=== PATIENT | male | born 1955 | race Caucasian/White ===

== ENCOUNTER → 2016-08-01 | Outpatient (CLI) | payer MEDICARE, MEDICAID ==
[~2016-08-01] MED LIST: ALBU18HF2 INH; CETI-269 PO; FERR-67 PO; GABA-338 PO; GEMF600T61 PO; MAGN500T3 PO; METO-277 PO; MULT-1243 PO; NAPR-1119 PO; OMEG-34 PO; OMEP20CA10 PO; OXYC1TAB66 PO; POTA20TA10 PO; RISP1TAB4 PO; SULF1TAB3 PO; TAMS0.4C47 PO; TRAZ-173 PO; TRIA1CAP6 PO; VENL150C2 PO
[2016-08-01 14:22] LABS: MAGNESIUM 1.9 MG/DL (1.6-2.3)
[2016-08-01 22:51] LABS: ANION GAP 11 MEQ/L (5-15); BUN/CREATININE RATIO 14 RATIO (6-26); CALCIUM 10.1 MG/DL (8.4-10.2); CHLORIDE 107 MEQ/L (98-107); CO2 - CARBON DIOXIDE 26 MEQ/L (22-30); CREATININE 0.9 MG/DL (0.8-1.5); GLOMERULAR FILTRATION RATE 86; POTASSIUM 4.4 MEQ/L (3.6-5); SODIUM 144 MEQ/L (134-144)
[2016-08-01 23:39] LABS: GLUCOSE 87 MG/DL (75-110)
== END ==
LOC: LAB 13:53
PROVIDERS: ATTEND Family Medicine
DX: E87.6 Hypokalemia (principal); E83.40 Disorders of magnesium metabolism, unspecified
CPT/HCPCS: 36415; 80048; 83735

== ENCOUNTER 2016-09-01 22:05 | Emergency (ER) | payer MEDICARE, MEDICAID ==
[~2016-09-01] VITALS: Ht 175.3 cm; Wt 90.6 kg
[2016-09-01 22:05] VITALS: Ht 175.3 cm; Wt 90.6 kg
--- OUTSIDE RECORDS SUMMARY | 2016-09-01 22:07 | XMS REPORT | Continuity of Care Document ---
Author Author [facility] Organization [facility] Address Unknown Phone Unavailable Care Team Providers Care Foot Tender Name Role Phone ISABEL ORLANDO MD Primary Care Physician [phone] Insurance Providers Payer Name Policy Number Subscriber Name Relationship Medicare [id number] Tim Sandoval 18 Self Medicaid [id number] Tim Sandoval 18 Self Advance Directives Directive Response Recorded Date/Time Ordered Resuscitation Status Full Code, unverified 03/21/14 4:12pm Resuscitation Documents on File No 03/21/14 3:58pm Problems Medical Problems Problem Onset Date Status Back pain Unknown Active Back pain Unknown Active Strain of left knee Unknown Active Strain of left knee Unknown Active Medications Medication Dose Route Sig Days/Qty Instructions Order Date Discontinued Date Status Hydrocodone Bit/Acetaminophen 1 - 2 Tab PO NEEDED 04/02/08 Discontinued Methocarbamol 750 Mg PO NEEDED 08/05/08 10/24/08 Discontinued Olmesartan Medoxomil 1 Tab PO DAILY 02/05/10 09/14/12 Discontinued Gemfibrozil 1 Tab PO DAILY 02/05/10 Active Furosemide 06/06/08 07/01/08 Discontinued Paroxetine Hcl 1 Tab PO DAILY 08/05/08 02/25/09 Discontinued Omeprazole 1 Tab PO DAILY 02/05/10 Active Hydrocodone Bit/Acetaminophen 1 Udtab PO THREE TIMES A DAY 08/05/08 04/27/09 Discontinued Varenicline Tartrate 10/24/08 02/25/09 Discontinued Hydrocodone Bit/Acetaminophen 1 Tab PO NEEDED 02/05/10 09/14/12 Discontinued Valsartan/Hydrochlorothiazide 1 Tab PO DAILY 02/05/10 09/14/12 Discontinued Furosemide 40 Mg PO DAILY 10/07/09 10/08/09 Discontinued Paroxetine Hcl 60 Mg PO DAILY 02/05/10 09/14/12 Discontinued Pravastatin Sodium 40 Mg PO BEDTIME 02/05/10 09/17/12 Discontinued Metoprolol Succinate 25 Mg PO TWICE A DAY 02/05/10 Active Hydrochlorothiazide 25 Mg PO DAILY 09/14/12 Active Loratadine 10 Mg PO BEDTIME 09/14/12 09/17/12 Discontinued Multivitamins 1 Tab PO DAILY 09/14/12 09/17/12 Discontinued Paroxetine Mesylate 10 Mg PO DAILY 0.5 Qty 09/14/12 09/17/12 Discontinued Cyanocobalamin 1,000 Mcg PO DAILY 09/14/12 09/17/12 Discontinued Venlafaxine Hcl 75 Mg PO DAILY 09/17/12 Active Hydrocodone/Acetaminophen 1 Tab PO Every 6 Hours PRN PAIN 30 Qty Active Potassium Chloride 20 Meq PO TWICE DAILY WITH MEALS 60 Qty Take 1 tablet, by mouth, two times a day with meals. 03/23/14 Active Magnesium Oxide 1 Tab PO TWICE A DAY 60 Qty 03/23/14 Active Social History Social History Problem Response Recorded Date/Time Smoking Status Current every day smoker 09/09/2013 12:52pm When did patient START smoking? 15 03/21/2014 4:01pm Hx Substance Use Y USED ILLICIT DRUGS ABOUT SIX MONTHS TO A YEAR AGO 2013 12:22pm Hx Alcohol Use Y NO ALCOHOL FOR THE PAST 5 MONTHS 02/27/2014 12:22pm Has the pt used tobacco in the last 12 months Yes 03/21/2014 4:01pm Query Response Start Date Stop Date Smoking Status Current every day smoker Hospital Discharge Instructions Instructions: Care Instructions: Reason for Hospitalization: HYPOKALEMIA, HYPOMAGNESIA, GAIT INSTABILITY, ALCOHOLISM, SEIZURES I was in the hospital because (patient own words): I drank too much wiskey and i didn't eat Discharge Activity: ACTIVITY TOLERATED Follow Up Appointments: FOLLOW UP WITH DR. ORLANDO EARLY THIS WEEK, CALL TO MAKE APPOINTMENT. Condition at time of discharge: Good Good Condition at time of discharge: Good Plan of Care Discharge Date 03/23/14 7:25pm Disposition 01 DISCHARGED HOME, SELF-CARE Instructions/Education Provided DI for Alcohol Abuse and Alcoholism DI for Hypokalemia Prescriptions See Medications Section Functional Status Query Response Date Recorded Physical Hygiene Self March 23, 2014 7:03pm Disabilities None March 23, 2014 7:03pm Devices Used Dentures Glasses March 23, 2014 7:03pm Dressing Self March 23, 2014 7:03pm Ambulation Self March 23, 2014 7:03pm Diet Self March 23, 2014 7:03pm Mental Status Alert Oriented March 23, 2014 7:03pm Disabilities None March 23, 2014 7:03pm Devices Used Dentures Glasses March 23, 2014 7:03pm Physical Hygiene Self March 23, 2014 7:03pm Dressing Self March 23, 2014 7:03pm Ambulation Self March 23, 2014 7:03pm Diet Self March 23, 2014 7:03pm Allergies, Adverse Reactions, Alerts Allergen Type Severity Reaction Status Last Updated No Known Drug Allergies Allergy Unknown Active 03/21/14 Immunizations Name Given Type Hx Influenza Vaccination No Historical Hx Pneumococcal Vaccination No Historical Hx Tetanus, Diptheria, Pertussis Y 04-27-09 Historical Hx Influenza Vaccination No Historical Hx Tetanus, Diptheria, Pertussis Y 04-27-09 Historical Vital Signs Acute Vital Signs Vital Response Date/Time Temperature (Fahrenheit) 98.2 deg F (96.8 - 99.1) Temperature (Calculated Celsius) 36.29751 degrees C (36.0 - 37.3) Temperature Source Oral Pulse Rate (adult) 62 bpm (60 - 100) Respiratory Rate 16 breaths/min (10 - 20) O2 Sat by Pulse Oximetry 100 % (90 - 100) Oxygen Delivery Method Room Air Blood Pressure 155/98 mm Hg Blood Pressure Source Automatic Cuff Height 5 ft 8 in Weight 194 lb Body Mass Index 29.0 kg/m^2 Results Test Source Date Result Interp. Ref. Range Comments Acetaminophen Level February 05, 2010 12:12pm < 10 UG/ML L 10-30 Alanine Aminotransferase (ALT/SGPT) March 23, 2014 4:31am 59 U/L N 21 -72 Albumin March 23, 2014 4:31am 2.7 G/DL L 3.5-5.0 Albumin/Globulin Ratio March 23, 2014 4:31am 1.1 RATIO N 1.1-2.2 Alcohol, Quantitative March 21, 2014 1:36pm <10 MG/DL - CALL BUN& CREA TO RADIOLOGY Alkaline Phosphatase March 23, 2014 4:31am 89 U/L N 38-126 Alpha Fetoprotein May 16, 2008 8:50am Sent out - Ammonia February 05, 2010 12:12pm 24 UMOL/L N 9-33 Anion Gap March 23, 2014 6:15pm 6 MEQ/L N 5-15 Aspartate Amino Transf (AST/SGOT) March 23, 2014 4:31am 58 U/L DN 17- 59 B-Type Natriuretic Peptide June 13, 2009 1:30pm 41 PG/ML N 15-100 BUN/Creatinine Ratio March 23, 2014 6:15pm 6 RATIO N 6-26 Band Neutrophils # March 21, 2014 1:36pm 0.3 T/MM3 - CALL BUN& CREA TO RADIOLOGY Band Neutrophils % March 21, 2014 1:36pm 5.0 % N 0-6 CALL BUN&CREA TO RADIOLOGY Basophils # (Auto) March 23, 2014 4:31am 0.1 T/MM3 N 0-0.2 Basophils # (Manual) October 29, 2009 6:05am 0.0 T/MM3 N 0-0.2 COMMENT TO SCU AT 0600 Basophils % (Manual) October 29, 2009 6:05am 0.0 % N 0-2 COMMENT TO SCU AT 0600 Basophils (%) (Auto) March 23, 2014 4:31am 1.0 % N 0-2 Blood Urea Nitrogen March 23, 2014 6:15pm 5.0 MG/DL L 9-20 Calcium Level March 23, 2014 6:15pm 8.5 MG/DL N 8.4-10.2 Calculated Osmolality March 23, 2014 6:15pm 263 MOSM/KG N 261-280 Carbon Dioxide Level March 23, 2014 6:15pm 26 MEQ/L N 22-30 Chemistry Specimen Hemolysis March 23, 2014 6:15pm < 15 0-25 0-25 : No Hemolysis.26-70: Slight Hemolysis - can falsely elevate K and Urine Protein. 71-285: Moderate Hemolysis - can falsely elevate K, Troponin I, CA 19-9, PTH, CSF GLucose, and Urine Protein, and can falsely decrease Phenytoin. 286-999: Gross Hemolysis - can falsely elevate K, Troponin I, CA 19-9, PTH, CSF Glucose, and Urine Protine, and can falsely decrease Phenytoin. Recommend specimen recollection. Chloride Level March 23, 2014 6:15pm 106 MEQ/L N 98-107 Cholesterol Level May 16, 2008 8:50am 370 MG/DL H 132-199 Cholesterol/HDL Ratio May 16, 2008 8:50am 4.0 RATIO N 0-4.9 Conjugated Bilirubin February 05, 2010 12:12pm 0.00 MG/DL N 0.00-0.30 Creatinine March 23, 2014 6:15pm 0.8 MG/DL N 0.8-1.5 EKG February 25, 2009 6:43pm Complete - Eosinophils # (Auto) March 23, 2014 4:31am 0.1 T/MM3 N 0-0.5 Eosinophils # (Manual) March 21, 2014 1:36pm 0.1 T/MM3 N 0-0.5 CALL BUN&CREA TO RADIOLOGY Eosinophils % (Manual) March 21, 2014 1:36pm 1.0 % N 0-4 CALL BUN& CREA TO RADIOLOGY Eosinophils (%) (Auto) March 23, 2014 4:31am 1.7 % N 0-4 Erythrocyte Sedimentation Rate May 16, 2008 8:50am 3 MM/HR - Globulin March 23, 2014 4:31am 2.5 G/DL N 2.4-3.6 Glomerular Filtration Rate Calc March 23, 2014 6:15pm 99 - Glucose Level March 23, 2014 6:15pm 92 MG/DL N 75-110 HDL Cholesterol Direct May 16, 2008 8:50am 88 MG/DL H 40-60 HIV (1&2) Antibody Rapid May 16, 2008 8:50am Negative - Hematocrit March 23, 2014 4:31am 33.1 % L 41-53 Hemoglobin March 23, 2014 4:31am 11.0 GM/DL L 13.5-17.5 Hepatitis C Antibody May 16, 2008 9:20am Positive - Hepatitis C RNA (PCR) Method May 16, 2008 9:20am Sent out - Icterus Index March 23, 2014 6:15pm < 2 0-7 Immature Granulocyte # (Auto) March 23, 2014 4:31am 0.06 T/MM3 H 0.00 -0.03 Immature Granulocyte % (Auto) March 23, 2014 4:31am 1.1 % H 0.0-0.5 Influenza Type A Antigen June 13, 2009 2:10pm Negative - Influenza Type B Antigen June 13, 2009 2:10pm Negative - LDL Cholesterol, Calculated May 16, 2008 8:50am 232.8 H 66-159 Lab Scanned Report March 21, 2014 9:03pm LAB TEST FORM REQUEST - Lipase June 13, 2009 1:30pm 435 U/L H 23-300 Lymphocytes # (Auto) March 23, 2014 4:31am 1.9 T/MM3 N 1-4.8 Lymphocytes # (Manual) March 21, 2014 1:36pm 2.0 T/MM3 N 1-4.8 CALL BUN&CREA TO RADIOLOGY Lymphocytes % (Manual) March 21, 2014 1:36pm 30.0 % N 23-45 CALL BUN &CREA TO RADIOLOGY Lymphocytes (%) (Auto) March 23, 2014 4:31am 35.4 % N 23-45 Magnesium Level March 23, 2014 6:15pm 0.9 MG/DL DL 1.6-2.3 Mean Corpuscular Hemoglobin March 23, 2014 4:31am 33.3 UUG N 26-34 Mean Corpuscular Hemoglobin Concent March 23, 2014 4:31am 33.2 GM/DL N 31-37 Mean Corpuscular Volume March 23, 2014 4:31am 100.3 UM3 H 80-100 Mean Platelet Volume March 23, 2014 4:31am 10.4 UM3 N 9.4-12.4 Metamyelocytes # March 21, 2014 1:36pm 0.1 T/MM3 - CALL BUN&CREA TO RADIOLOGY Metamyelocytes % March 21, 2014 1:36pm 2.0 % H 0-0 CALL BUN&CREA TO RADIOLOGY Monocytes # (Auto) March 23, 2014 4:31am 1.0 T/MM3 H 0-0.8 Monocytes # (Manual) March 21, 2014 1:36pm 0.4 T/MM3 N 0-0.8 CALL BUN&CREA TO RADIOLOGY Monocytes % (Manual) March 21, 2014 1:36pm 6.0 % N 0-9.0 CALL BUN& CREA TO RADIOLOGY Monocytes (%) (Auto) March 23, 2014 4:31am 18.7 % H 0-9.0 Neutrophils # (Auto) March 23, 2014 4:31am 2.2 T/MM3 N 1.8-7.7 Neutrophils # (Manual) March 21, 2014 1:36pm 3.7 T/MM3 N 1.8-7.7 CALL BUN&CREA TO RADIOLOGY Neutrophils % (Manual) March 21, 2014 1:36pm 55.0 % N 33-66 CALL BUN &CREA TO RADIOLOGY Neutrophils (%) (Auto) March 23, 2014 4:31am 42.1 % N 33-66 Phosphorus Level February 05, 2010 12:12pm 1.6 MG/DL L 2.5-4.5 Platelet Count March 23, 2014 4:31am 212 T/MM3 N 130-400 Potassium Level March 23, 2014 6:15pm 4.3 MEQ/L N 3.6-5 Prostate Specific Antigen May 16, 2008 8:50am 2.56 NG/ML N 0-4.0 RDW Standard Deviation March 23, 2014 4:31am 45.0 FL N 36.9-50.2 Reactive Lymphocytes # March 21, 2014 1:36pm 0.1 T/MM3 H 0-0 CALL BUN&CREA TO RADIOLOGY Reactive Lymphocytes % March 21, 2014 1:36pm 1.0 % H 0-0 CALL BUN& CREA TO RADIOLOGY Red Blood Count March 23, 2014 4:31am 3.30 M/MM3 L 4.50-5.90 Salicylates Level February 05, 2010 12:12pm < 1.0 MG/DL L 2-20 Sodium Level March 23, 2014 6:15pm 138 MEQ/L N 134-144 Tests Not Done February 25, 2009 6:43pm Not done - Has specimen been collected/obtained? Y Thyroid Stimulating Hormone (TSH) May 16, 2008 8:50am 3.61 MIU/ML N 0.47-4.68 Total Bilirubin March 23, 2014 4:31am 0.30 MG/DL N 0.20-1.30 Total Protein March 23, 2014 4:31am 5.2 G/DL L 6.3-8.2 Triglycerides Level May 16, 2008 8:50am 246 MG/DL H 40-160 Troponin I March 21, 2014 1:36pm < 0.012 ng/ml 0-0.12 CALL BUN& CREA TO RADIOLOGY Turbidity March 23, 2014 6:15pm < 20 0-20 Unconjugated Bilirubin February 05, 2010 12:12pm 0.67 MG/DL N 0.00-1.10 Urine Acetaminophen Screen February 05, 2010 1:15pm Positive NG/ML - Urine Amphetamines Screen February 05, 2010 1:15pm Negative NG/ML - Urine Bacteria February 05, 2010 1:15pm Trace H - Has specimen been collected/obtained? Y Urine Barbiturates Screen February 05, 2010 1:15pm Negative NG/ML - Urine Benzodiazepines Screen February 05, 2010 1:15pm Negative NG/ML - Urine Bilirubin February 05, 2010 1:15pm Negative - Has specimen been collected/obtained? Y Urine Blood February 05, 2010 1:15pm Trace H - Has specimen been collected/obtained? Y Urine Cannabinoids Screen February 05, 2010 1:15pm Positive NG/ML - Urine Cocaine Screen February 05, 2010 1:15pm Negative NG/ML - Urine Collection Type February 05, 2010 1:15pm Voided - Has specimen been collected/obtained? Y Urine Color February 05, 2010 1:15pm Yellow - Has specimen been collected/obtained? Y Urine Drug Screen Confirmation February 05, 2010 1:30pm Sent out - Urine Glucose (UA) February 05, 2010 1:15pm Negative - Has specimen been collected/obtained? Y Urine Ketones February 05, 2010 1:15pm 2+ H - Has specimen been collected/obtained? Y Urine Leukocyte Esterase February 05, 2010 1:15pm 1+ H - Has specimen been collected/obtained? Y Urine Methadone Screen February 05, 2010 1:15pm Negative NG/ML - Urine Methamphetamines Screen February 05, 2010 1:15pm Positive NG/ML - Urine Mucus February 05, 2010 1:15pm Present - Has specimen been collected/obtained? Y Urine Nitrite February 05, 2010 1:15pm Negative - Has specimen been collected/obtained? Y Urine Opiates Screen February 05, 2010 1:15pm Positive NG/ML - Urine Phencyclidine Screen February 05, 2010 1:15pm Negative NG/ML - Urine Protein February 05, 2010 1:15pm Trace H - Has specimen been collected/obtained? Y Urine RBC February 05, 2010 1:15pm 1-3 /HPF - Has specimen been collected/obtained? Y Urine Random Potassium March 22, 2014 8:40pm 5.3 MEQ/L - Has specimen been collected/obtained? Y Urine Specific [place] February 05, 2010 1:15pm 1.010 L - Has specimen been collected/obtained? Y Urine Tricyclic Antidepressants February 05, 2010 1:15pm Negative NG/ML - Urine Turbidity February 05, 2010 1:15pm Clear - Has specimen been collected/obtained? Y Urine Urobilinogen February 05, 2010 1:15pm 1 EU/DL - Has specimen been collected/obtained? Y Urine WBC February 05, 2010 1:15pm 1-3 /HPF - Has specimen been collected/obtained? Y Urine pH February 05, 2010 1:15pm 6.0 - Has specimen been collected/ obtained? Y VLDL Cholesterol May 16, 2008 8:50am 49.2 MG/DL H 0-28 White Blood Count March 23, 2014 4:31am 5.2 T/MM3 N 4.5-11.0 Name: TMI SANDOVAL Unit #: [id number] : 1955 Sex: M Loc / Svc: [facility] [place] DOS: Signed Report #: [id number] DIAGNOSTIC IMAGING REPORT TYPE OF EXAM: MRI BRAIN W/WO CONTRAST Dictated By: ORGER OWUSU MD INDICATION: HYPOKALEMIA. HYPO MAG., GAIT INSTABILITY, ALCOHOLISM, SEIZURE ^MRI HEAD COMPARISON: Head CT 10/24/2012 MRI BRAIN W/WO CONTRAST: The brain has evidence of minor chronic small vessel ischemic changes. No significant atrophy. No evidence of midline shift. Normal ventricle size. No findings to suggest tumor, infarct, or hemorrhage. Normal brain diffusion images. Normal-appearing corpus callosum and pituitary. Evidence of a minor effusion in the left mastoids. Evidence of severe chronic right maxillary sinusitis. IMPRESSION: No acute abnormalities in the brain. Evidence of a small left mastoid effusion. Chronic sinusitis. . Procedures No known history of procedures. Encounters Encounter Location Date/Time Discharged Inpatient [facility] 03/22/14 11:50am Registered Clinic [facility] 03/21/14 12:59pm Departed Emergency Room [facility] 02/27/14 12:15pm
--- OUTSIDE RECORDS SUMMARY | 2016-09-01 22:07 | XMS REPORT | Continuity of Care Document ---
Author Author [facility] Organization [facility] Address Unknown Phone Unavailable Support Name Relationship Address Phone ISABEL ORLANDO MD Caregiver [address] [place], [place] [id number] RAMESH SANFORD Next Of Kin [address] [place], [place] [address] Insurance Providers Payer Name Policy Number Subscriber Name Relationship Medicare [id number] Tim Sandoval 18 Self Medicaid [id number] Tim Sandoval 18 Self Advance Directives Directive Response Recorded Date/Time Resuscitation Documents on File No 03/24/14 1:32pm Problems Medical Problems Problem Onset Date Status [...] Status Current every day smoker 09/09/2013 12:52pm Hx Substance Use Y USED ILLICIT DRUGS ABOUT SIX MONTHS TO A YEAR AGO 2013 12:22pm Hx Alcohol Use Y NO ALCOHOL FOR THE PAST 5 MONTHS 02/27/2014 12:22pm Has the pt used tobacco in the last 12 months Yes 03/24/2014 1:29pm Query Response Start Date Stop Date Smoking [...] APPOINTMENT. Condition at time of discharge: Good Dr. Reeder office phone number: [phone]. Patient Instructions: n/a Wound/Incision Care: n/a Durable Medical Equipment: n/a Notify Physician If: Worsening fatigue, shortness of breath General Information: n/a Condition at time of discharge: Good Plan of Care Discharge Date 03/23/14 7:25pm Disposition 01 DISCHARGED HOME, SELF-CARE Instructions/Education Provided DI for Alcohol Abuse and Alcoholism DI for Hypokalemia Prescriptions See Medications Section Functional Status Query Response Date Recorded Physical Hygiene Self March 23, 2014 7:03pm Physical Hygiene Self March 23, 2014 7:03pm Allergies, Adverse [...] Vital Signs Vital Response Date/Time Temperature (Fahrenheit) 98.6 deg F (96.8 - 99.1) Temperature (Calculated Celsius) 37.17231 degrees C (36.0 - 37.3) Temperature Source Temporal Pulse Rate (adult) 68 bpm (60 - 100) Respiratory Rate 16 breaths/min (10 - 20) O2 Sat by Pulse Oximetry 97 % (90 - 100) Oxygen Delivery Method Room Air Blood Pressure 148/76 mm Hg Blood Pressure Source Automatic Cuff Height 5 ft 9 in Weight 180 lb Body Mass Index 26.0 kg/m^2 Results Test Source Date Result Interp. [...] 24 UMOL/L N 9-33 Anion Gap March 25, 2014 10:49am 9 MEQ/L N 5-15 Aspartate Amino Transf (AST/SGOT) March 23, 2014 4:31am 58 U/L DN 17- 59 B-Type Natriuretic Peptide June 13, 2009 1:30pm 41 PG/ML N 15-100 BUN/Creatinine Ratio March 25, 2014 10:49am 9 RATIO N 6-26 Band Neutrophils # March [...] % N 0-2 Blood Urea Nitrogen March 25, 2014 10:49am 10.0 MG/DL DN 9-20 Calcium Level March 25, 2014 10:49am 9.6 MG/DL DN 8.4-10.2 Calculated Osmolality March 25, 2014 10:49am 266 MOSM/KG N 261-280 Carbon Dioxide Level March 25, 2014 10:49am 27 MEQ/L N 22-30 Chloride Level March 25, 2014 10:49am 103 MEQ/L N 98-107 Cholesterol Level May 16, 2008 8:50am 370 MG/DL H 132-199 Cholesterol/HDL Ratio May 16, 2008 8:50am 4.0 RATIO N 0-4.9 Conjugated Bilirubin February 05, 2010 12:12pm 0.00 MG/DL N 0.00-0.30 Creatinine March 25, 2014 10:49am 1.1 MG/DL DN 0.8-1.5 Eosinophils # (Auto) March 23, 2014 4:31am [...] 23, 2014 4:31am 2.5 G/DL N 2.4-3.6 Glucose Level March 25, 2014 10:49am 87 MG/DL N 75-110 Hematocrit March 23, 2014 4:31am 33.1 % L 41-53 Hemoglobin March 23, 2014 4:31am 11.0 GM/DL L 13.5-17.5 Hepatitis C Antibody May 16, 2008 9:20am Positive - Influenza Type A Antigen June 13, 2009 2:10pm Negative - Influenza Type B Antigen June 13, 2009 2:10pm Negative - LDL Cholesterol, Calculated May 16, 2008 8:50am 232.8 H 66-159 Lipase June 13, 2009 1:30pm 435 U/L [...] 35.4 % N 23-45 Magnesium Level March 25, 2014 10:49am 1.6 MG/DL DN 1.6-2.3 Mean Corpuscular Hemoglobin March 23, 2014 [...] 212 T/MM3 N 130-400 Potassium Level March 25, 2014 10:49am 4.2 MEQ/L N 3.6-5 Prostate Specific Antigen May 16, 2008 8:50am 2.56 NG/ML N 0-4.0 RDW Standard Deviation March 23, 2014 4:31am 45.0 FL N 36.9-50.2 Red Blood Count March 23, 2014 4:31am 3.30 M/MM3 L 4.50-5.90 Salicylates Level February 05, 2010 12:12pm < 1.0 MG/DL L 2-20 Sodium Level March 25, 2014 10:49am 139 MEQ/L N 134-144 Tests Not Done February [...] ng/ml 0-0.12 CALL BUN& CREA TO RADIOLOGY Unconjugated Bilirubin February 05, 2010 12:12pm 0.67 MG/DL N 0.00-1.10 Urine Amphetamines Screen February 05, 2010 1:15pm [...] - Has specimen been collected/obtained? Y Urine Cocaine Screen February 05, 2010 1:15pm [...] - Has specimen been collected/obtained? Y Urine Methamphetamines Screen February 05, 2010 1:15pm [...] Has specimen been collected/obtained? Y Urine Specific [place] February 05, 2010 1:15pm 1.010 L - [...] 23, 2014 4:31am 5.2 T/MM3 N 4.5-11.0 Chemistry Specimen Hemolysis March 25, 2014 10:49am < 15 0-25 0-25 : No Hemolysis.26-70: [...] can falsely decrease Phenytoin. Recommend specimen recollection. Lab Scanned Report March 25, 2014 5:21pm LAB TEST FORM REQUEST [id number] - EKG February 25, 2009 6:43pm Complete - Hepatitis C RNA (PCR) Method May 16, 2008 9:20am Sent out - HDL Cholesterol Direct May 16, 2008 8:50am 88 MG/DL H 40-60 Urine Methadone Screen February 05, 2010 1:15pm Negative NG/ML - HIV (1&2) Antibody Rapid May 16, 2008 8:50am Negative - Urine Cannabinoids Screen February 05, 2010 1:15pm Positive NG/ML - Turbidity March 25, 2014 10:49am < 20 0-20 Reactive Lymphocytes % March 21, 2014 1:36pm 1.0 % H 0-0 CALL BUN& CREA TO RADIOLOGY Glomerular Filtration Rate Calc March 25, 2014 10:49am 69 - Reactive Lymphocytes # March 21, 2014 1:36pm 0.1 T/MM3 H 0-0 CALL BUN&CREA TO RADIOLOGY Immature Granulocyte # (Auto) March 23, 2014 4:31am 0.06 T/MM3 H 0.00 -0.03 Immature Granulocyte % (Auto) March 23, 2014 4:31am 1.1 % H 0.0-0.5 Icterus Index March 25, 2014 10:49am < 2 0-7 Urine Acetaminophen Screen February 05, 2010 1:15pm Positive NG/ML - Name: TIM SANDOVAL Unit #: [id number] : 1955 Sex: M Loc / Svc: [facility] DOS: Signed Report #: [id number] DIAGNOSTIC IMAGING REPORT TYPE OF EXAM: MRI BRAIN W/WO CONTRAST Dictated By: ROGER OWUSU MD INDICATION: HYPOKALEMIA. HYPO MAG., GAIT [...] left mastoid effusion. Chronic sinusitis. . Procedures Procedure Status Date Provider(s) EMERGENCY DEPT VISIT completed 02/27/14 Encounters Encounter Location Date/Time Discharged Recurring [facility] 03/25/14 12:00pm Registered Clinic [facility] 03/25/14 10:40am Discharged Inpatient [facility] 03/22/14 11:50am Registered [facility] 03/21/14 12:59pm Departed Emergency Room [facility] 02/27/14 12:15pm
--- OUTSIDE RECORDS SUMMARY | 2016-09-01 22:07 | XMS REPORT | Referral Summary ---
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 Name Role Phone Tuyet Farah Primary Care Physician [phone] Encounter VC Date(s): 06/21/16 - 06/21/16 [facility] [address] [place] [address] RADHA Dean [phone]- [place] Discharge Diagnosis: Post-operative state Discharge Disposition: -Home or Self Care Attending Physician: Archana Fink APRN Admitting Physician: Archana Fink APRN Referring Physician: Willy Farah MD Vital Signs Most recent to 1 oldest [Reference Range]: Temperature Tympanic 35.9 degC [36.6-38.1 degC] *LOW* (06/21/16 9:46 AM) Problem List Condition Effective Dates Status Health Status Informant Alcohol Active patient abuse(Confirmed) Depression(Confirmed Active patient ) Hyperlipidemia(Confi Active patient rmed) Hypertension(Confirm Active patient ed) Tobacco Active patient user(Confirmed) Hepatitis Active patient C(Confirmed) Allergies, Adverse Reactions, Alerts No Known Medication Allergies Medications Centrum Silver oral tablet 1 tabs, Oral, Mon/We/Fr, 0 Refill(s) Start Date: 05/31/16 Status: Ordered cetirizine 10 mg oral tablet 10 mg 1 tabs, Oral, Daily, # 30 tabs, 0 Refill(s) Start Date: 05/31/16 Status: Ordered ferrous sulfate 325 mg (65 mg elemental iron) oral tablet 325 mg 1 tabs, Oral, Mon/We/Fr, 0 Refill(s) Start Date: 05/31/16 Status: Ordered Fish Oil 1200 mg oral capsule 1,200 mg 1 caps, Oral, Mon/We/Fr, 0 Refill(s) Start Date: 05/31/16 Status: Ordered folic acid 1 mg oral tablet 1 mg 1 tabs, Oral, Daily, # 30 tabs, 0 Refill(s) Start Date: 09/26/14 Status: Ordered gabapentin 300 mg oral capsule 300 mg 1 caps, Oral, Daily, 0 Refill(s) Start Date: 05/31/16 Status: Ordered gemfibrozil See Instructions, 600 mg Oral 2 tablets daily, 0 Refill(s) Start Date: 05/31/16 Status: Ordered Keflex 500 mg oral capsule 500 mg 1 caps, Oral, TID, Patient has not started yet, 0 Refill(s) Start Date: 06/07/16 Stop Date: 06/17/16 Status: Ordered magnesium oxide 500 mg oral tablet 500 mg 1 tabs, Oral, Daily, 0 Refill(s) Start Date: 05/31/16 Status: Ordered metoprolol succinate 100 mg oral tablet, extended release 200 mg 2 tabs, Oral, Daily, # 30 tabs, 0 Refill(s) Start Date: 05/31/16 Status: Ordered naproxen sodium 220 mg oral capsule 220 mg 1 caps, Oral, q12hr, as needed for pain, # 40 caps, 0 Refill(s) Start Date: 05/31/16 Status: Ordered omeprazole 20 mg oral delayed release capsule 20 mg 1 caps, Oral, Daily, # 30 caps, 0 Refill(s) Start Date: 05/31/16 Status: Ordered oxyCODONE 5 mg oral capsule 5 mg 1 caps, Oral, BID, Before dressing changes, # 30 caps, 0 Refill(s) Start Date: 06/07/16 Status: Ordered oxyCODONE 5 mg oral capsule 5 mg 1 caps, Oral, q6hr, as needed for pain, 0 Refill(s) Start Date: 05/31/16 Status: Ordered oxyCODONE 7.5 mg oral tablet 7.5 mg 1 tabs, Oral, q6hr, Pain Severe (7-10), # 30 tabs, 0 Refill(s) Start Date: 05/31/16 Stop Date: 07/05/16 Status: Ordered polyethylene glycol 3350 with electrolytes oral powder for reconstitution See Instructions, 17 gm po daily, use up to 3 times a day if constipated., 0 Refill(s) Start Date: 05/31/16 Status: Ordered sulfamethoxazole-trimethoprim 800 mg-160 mg oral tablet See Instructions, TAKE ONE TABLET BY MOUTH EVERY 12 HOURS FOR 7 DAYS, # 14 tabs , eRx: [facility] #[id number], TAKE ONE TABLET BY MOUTH EVERY 12 HOURS FOR 7 DAYS Start Date: 06/09/16 Status: Ordered tamsulosin 0.4 mg oral capsule mg caps, Oral, Daily, 0 Refill(s) Start Date: 05/31/16 Status: Ordered triamterene-hydrochlorothiazide 37.5 mg-25 mg oral capsule 1 caps, Oral, Daily, # 30 caps, 0 Refill(s) Start Date: 05/31/16 Status: Ordered venlafaxine 75 mg oral capsule, extended release 75 mg 1 caps, Oral, Daily, # 30 caps, 0 Refill(s) Start Date: 05/31/16 Status: Ordered Results No data available for this section Immunizations No data available for this section Procedures Procedure Date Related Diagnosis Body Site Laparoscopic cholecystectomy1 05/27/16 1For mild gallstone pancreatitis Social History Social History Type Response Smoking Status Current every day smoker; Type: Cigarettes; Tobacco use per day: 1 Pack; Number of years: 40 Assessment and Plan Extracted from: Title: Office Visit Note Author: 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 I think within about a week this will be completely healed completely. Please return to the clinic in one week for hopefully a final visit. Ordered: Postoperative Est [id number]
--- OUTSIDE RECORDS SUMMARY | 2016-09-01 22:07 | XMS REPORT | Continuity of Care Document ---
Author Author [facility] Organization [facility] Address Unknown Phone Unavailable Care Team Providers Care Sound Technician Supervisor Name Role Phone ISABEL ORLANDO MD Primary Care Physician [phone] Insurance Providers Guarantor Tim Sandoval Address [address] [facility] [address] [place] [address] Email [id number] Payer [facility] Community Plan Policy Number [id number] Subscriber's Name Tim Sandoval Relationship 18 Self Effective Date 16 Expiration Date 16 Payer Medicare Policy Number [id number] Subscriber's Name Tim Sandoval Relationship 18 Self Advance Directives Directive Response Recorded Date/Time Advanced Directives Type None 06/06/16 9:03pm Chief Complaint and Reason for Visit Chief Complaint Post-Surgical Problem Reason for Visit Postoperative cellulitis of surgical wound Problems Active Problems Medical Problem Onset Date Status Abdominal pain Unknown Resolved Acute sinusitis Unknown Acute Alcohol dependence Unknown Acute Alcohol use Unknown Acute Anxiety Unknown BPH (benign prostatic hyperplasia) Unknown Back pain Unknown Acute Back pain Unknown Acute COPD (chronic obstructive pulmonary disease) Unknown Cervical muscle strain Unknown Acute Cervical neck pain with evidence of disc disease Unknown Acute Cervical strain Unknown Acute Cervical strain, acute Unknown Acute Cholelithiasis Unknown Resolved Closed head injury without loss of consciousness Unknown Acute Closed rib fracture Unknown Acute Concussion Unknown Acute Current drug use Unknown Acute Depression Unknown Diverticulitis Unknown Dyslipidemia Unknown Chronic Elevated lipase Unknown Acute Elevated transaminase level Unknown Exacerbation of chronic back pain Unknown Acute Exacerbation of chronic back pain Unknown Acute GERD (gastroesophageal reflux disease) Unknown HTN (hypertension) Unknown Chronic Hallucinations Unknown Acute Hallucinations Unknown Acute Hepatitis C Unknown Hypokalemia Unknown Acute Hypomagnesemia Unknown Resolved Nephrolithiasis Unknown Osteoarthritis Unknown Overweight Unknown Chronic Postoperative cellulitis of surgical wound Unknown Acute Sepsis Unknown Acute Strain of left knee Unknown Acute Strain of left knee Unknown Acute Thrombosed external hemorrhoid Unknown Acute Tobacco dependence Unknown Chronic Total bilirubin, elevated Unknown Past Problems Medical Problem Onset Date Abdominal pain Unknown Acute psychosis Unknown Alcohol abuse Unknown Hypokalemia Unknown Hypotension Unknown Sigmoid diverticulitis Unknown UTI (urinary tract infection) Unknown Wrist laceration Unknown Medications Current Home Medications Medication Dose Units Route Directions Days Qty Instructions Start Date Albuterol Sulfate (Ventolin Hfa 90 Mcg/Actuation) 18 Gm Hfa.aer.ad 1 Puff Inhalation Daily as needed for Prn Orders 06/06/16 Cetirizine Hcl 10 Mg Tablet 10 Mg Oral Daily as needed for Allery Symptoms 12/18/15 Ferrous Sulfate (Iron Supplement) 325 Mg Tablet 325 Mg Oral Mowefr@Hs 12/18/15 Gabapentin 300 Mg Capsule 300 Mg Oral Daily 12/18/15 Gemfibrozil 600 Mg Tablet 1,200 Mg Oral Daily 02/05/10 Magnesium Oxide 500 Mg Tablet 500 Mg Oral Daily 12/19/14 Metoprolol Succinate 50 Mg Tab.er.24h 100 Mg Oral Daily 08/25/15 Multivits-Min/Fa/Lycopene/Lut (Centrum Silver Tablet) 1 Each Tablet 1 Tab Oral Mowefr@Hs 12/18/15 Naproxen Sodium (Naproxen 220MG) 220 Mg Tablet 220 Mg Oral Twice Daily With Meals as needed for Pain 12/18/15 [place]-3S/Dha/Epa/Fish Oil (Fish Oil 1,200 Mg Softgel) 1 Each Capsule 1,200 Mg Oral Mowefr@Hs 12/18/15 Omeprazole 20 Mg Capsule.dr 20 Mg Oral Daily 08/25/15 Oxycodone Hcl/Acetaminophen (Percocet 7.5-325 Mg Tablet) 7.5-325 Tablet 1 Tab Oral Three Times A Day as needed for Pain 06/06/16 Potassium Chloride (Klor-Con M20) 20 Meq Tablet 20 Meq Oral Twice A Day 06/06/16 Risperidone (Risperdal) 1 Mg Tablet 1 Mg Oral Bedtime 06/06/16 Sulfamethoxazole/Trimethoprim (Sulfamethoxazole-Tmp Ds Tablet) 1 Each Tablet 1 Tab Oral Twice A Day 06/06/16 Tamsulosin Hcl 0.4 Mg Cap.er.24h 0.4 Mg Oral Mowefr@Hs 12/18/15 Trazodone Hcl 100 Mg Tablet 100 Mg Oral Bedtime 06/06/16 Triamterene/Hydrochlorothiazid (Triamterene-Hctz 37.5-25 Mg Cp) 1 Each Capsule 1 Cap Oral Daily 06/06/16 Venlafaxine Hcl (Effexor Xr) 150 Mg Cap.er.24h 150 Mg Oral Daily 06/06/16 Past Home Medications Medication Directions Ordered Status Cyanocobalamin (Vitamin B-12) 1,000 Mcg Tablet, 1000 Mcg Oral Daily 09/14/12 Discontinued Furosemide (Lasix) 40 Mg Tablet, 40 Mg Oral Daily 10/07/09 Discontinued Furosemide (Lasix) 40 Mg Tablet, 06/06/08 Discontinued Hydrochlorothiazide 25 Mg Tablet, 25 Mg Oral Daily 01/05/16 Discontinued Hydrocodone Bit/Acetaminophen (Lortab 10-500 Tablet) 1 Tab Tablet, 1 Tab Oral As Needed 02/05/10 Discontinued Hydrocodone Bit/Acetaminophen (Lortab 10) 1 Udtab Tablet, 1 Udtab Oral Three Times A Day 08/05/08 Discontinued Hydrocodone Bit/Acetaminophen (Lortab 7.5/500 Tablet) 1 Tab Tablet, 1 - 2 Tab Oral As Needed 04/02/08 Discontinued Loratadine 10 Mg Tablet, 10 Mg Oral Bedtime 09/14/12 Discontinued Magnesium Oxide (Magnesium) 400 Mg Capsule, 2 Tab Oral Daily 10/14/14 Discontinued Methocarbamol 750 Mg Tablet, 750 Mg Oral As Needed 08/05/08 Discontinued Milk Thistle Seed Extract (Milk Thistle) Unknown Strength Capsule, 240 Mg Oral 3 Times A Week 12/18/15 Discontinued Multivitamins (Multivitamin) 1 Tab Tablet, 1 Tab Oral Daily 09/14/12 Discontinued Olmesartan Medoxomil (Benicar) 20 Mg Tablet, 1 Tab Oral Daily 02/05/10 Discontinued Paroxetine Hcl (Paxil) 30 Mg Tablet, 60 Mg Oral Daily 02/05/10 Discontinued Paroxetine Hcl (Paxil) 40 Mg Tablet, 1 Tab Oral Daily 08/05/08 Discontinued Paroxetine Mesylate (Pexeva) 10 Mg Tablet, 10 Mg Oral Daily 09/14/12 Discontinued Potassium Chloride 20 Meq Tablet.er, 20 Meq Oral Daily 10/14/14 Discontinued Pravastatin Sodium (Pravachol) 40 Mg Tablet, 40 Mg Oral Bedtime 02/05/10 Discontinued Valsartan/Hydrochlorothiazide (Diovan Hct 160-12.5 Mg Tab) 1 Tab Tablet, 1 Tab Oral Daily 02/05/10 Discontinued Varenicline Tartrate (Chantix) 1 Dose-Pack Tab.ds.pk, 10/24/08 Discontinued Social History Social History Problem Response Recorded Date/Time Onset Date Status Hx Substance Use No 06/06/2016 9:30pm Not Applicable Not Applicable Hx Alcohol Use Y 1/5 OF WHISKEY MOST DAYS 06/06/2016 9:30pm Not Applicable Not Applicable Has the pt used tobacco in the last 12 months Yes 05/27/2016 10:27am Not Applicable Not Applicable Tobacco Usage smoke 09/09/2013 5:56pm Not Applicable Not Applicable Query Response Start Date Stop Date Smoking Status Current every day smoker Hospital Discharge Instructions No hospital discharge instructions. Plan of Care Discharge Date 06/06/16 9:39pm Disposition 01 DISCHARGED HOME, SELF-CARE Condition at Discharge Improved Instructions/Education Provided Cellulitis (ED) Prescriptions See Medication Section Referrals ISABEL ORLANDO MD Address: [address] [place] [id number] Additional Instructions/Education Keflex 500mg three times daily for 10 days. Continue Bactrim until finished. See Dr. Brennan as scheduled tomorrow. Care Plan and Goals Physician Care Plan Problem: Postop cellulitis Goal: Follow up with primary care provider Instructions: Take medications and follow care plan as discussed/written Keflex 500mg three times daily for 10 days. Continue Bactrim until finished. See Dr. Brennan as scheduled tomorrow. Functional Status No functional status results. Allergies, Adverse Reactions, Alerts Allergen Type Severity Reaction Status Last Updated No Known Drug Allergies Allergy Unknown Active 06/06/16 Immunizations Immunization Event Date Type Not Given Reason Dose Number Lot Number Youth Coordinator VIS Given Influenza, seasonal, injectable 03/22/16 Not Given Patient Refused Med Influenza, seasonal, injectable 03/23/16 Administered 1 [id number] Brazen Careerist 12/12/14 Query Response on File Recorded Date/Time Hx Influenza Vaccination No 05/27/16 10:27am Hx Pneumococcal Vaccination No 05/27/16 10:27am Hx Tetanus, Diptheria, Pertussis No 01/18/15 11:45pm Hx Influenza Vaccination No 05/27/16 10:27am Hx Tetanus, Diptheria, Pertussis No 01/18/15 11:45pm Influenza Vaccine Hx FEBRUARY 2016 06/06/16 9:30pm Tetanus Diptheria Vaccine History 201406/06/16 9:30pm Tdap Vaccine Hx 201406/06/16 9:15pm Vital Signs Acute Vital Signs Vital Response Date/Time Temperature (Fahrenheit) 98.6 deg F (96.8 - 99.1) 06/06/2016 9:39pm Temperature (Calculated Celsius) 37.96012 degrees C (36.0 - 37.3) 06/06/2016 9:39pm Temperature Source Oral 05/28/2016 7:28am Pulse Rate (adult) 88 bpm (60 - 100) 06/06/2016 9:39pm Respiratory Rate 16 breaths/min (10 - 20) 06/06/2016 9:39pm O2 Sat by Pulse Oximetry 95 % (90 - 100) 06/06/2016 9:39pm Oxygen Delivery Method Room Air 05/28/2016 7:28am Oxygen Delivery Method Nasal Cannula 05/27/2016 6:15pm Oxygen Flow Rate 2.00 L/min 05/27/2016 10:00pm Blood Pressure 119/69 mm Hg 06/06/2016 9:39pm Blood Pressure Source Automatic Cuff 05/28/2016 7:28am Height (Feet) 5 feet 06/06/2016 8:50pm Height (Inches) 9.00 inches 06/06/2016 8:50pm Weight (Kilograms) 90.200 kg 06/06/2016 8:50pm Body Mass Index (BMI) 29.0 06/06/2016 8:50pm Results Laboratory Results Test Name Result Units Flags Reference Collection Date/Time Result Date/ Time Comments Unconjugated Bilirubin 1.00 MG/DL 0.00-1.10 03/24/2016 5:34am 2015 11:47am Conjugated Bilirubin 4.00 MG/DL H 0.00-0.30 03/24/2016 5:34am 2015 11:47am Plasma Lactate 0.8 MMOL/L 0.6-2.2 03/24/2016 3:19pm 03/24/2016 3:44pm Vitamin B12 Level 224 PG/ML L 239-931 03/22/2016 4:10am 03/23/2016 2: 29am Urine Mucus PRESENT 03/21/2016 9:31pm 03/21/2016 10:04pm Glucometer 115 mg/dL H 75-110 03/23/2016 6:04am 03/23/2016 6:31am Neutrophils % (Manual) 40.0 % 33-66 03/28/2016 11:25am 03/28/2016 12: 50pm Band Neutrophils % 8.0 % D H 0-6 03/28/2016 11:25am 03/28/2016 12:50pm Lymphocytes % (Manual) 30.0 % 23-45 03/28/2016 11:25am 03/28/2016 12: 50pm Monocytes % (Manual) 14.0 % H 0-9.0 03/28/2016 11:25am 03/28/2016 12: 50pm Eosinophils % (Manual) 1.0 % 0-4 03/28/2016 11:25am 03/28/2016 12:50pm Metamyelocytes % 5.0 % H 0-0 03/28/2016 11:25am 03/28/2016 12:50pm Myelocytes % 2.0 % H 0-0 03/28/2016 11:25am 03/28/2016 12:50pm Band Neutrophils # 1.0 T/MM3 03/28/2016 11:25am 03/28/2016 12:50pm Absolute Neutrophils (Manual) 5.1 T/MM3 1.8-7.7 03/28/2016 11:25am 12:50pm Lymphocytes # (Manual) 3.8 T/MM3 1-4.8 03/28/2016 11:25am 03/28/2016 12 :50pm Monocytes # (Manual) 1.8 T/MM3 H 0-0.8 03/28/2016 11:25am 03/28/2016 12: 50pm Eosinophils # (Manual) 0.1 T/MM3 0-0.5 03/28/2016 11:25am 03/28/2016 12 :50pm Metamyelocytes # 0.6 T/MM3 03/28/2016 11:25am 03/28/2016 12:50pm Myelocytes # 0.3 T/MM3 03/28/2016 11:25am 03/28/2016 12:50pm Red Cell Morphology Comment NORMAL 03/28/2016 11:25am 03/28/2016 12 :50pm Ammonia 20 UMOL/L 905/18/2016 7:29am 05/18/2016 7:47am Acetaminophen Level < 10 UG/ML L 1005/18/2016 7:2905/18/2016 7: 49am TOXIC <4 HR POST INGESTION: >150 MG/L; TOXIC <12 HR POST INGESTION: >50 MG/L Salicylates Level < 1.0 MG/DL L -05/18/2016 7:05/18/2016 7: 49am Alcohol, Quantitative <10 MG/DL <10 05/18/2016 7:29am 05/18/2016 7: 49am Urine Collection Type VOIDED-NOT CC-MIDSTR 05/18/2016 9:44am 2016 9:51am Urine WBC NONE SEEN /HPF 0-5 05/18/2016 9:44am 05/18/2016 10:09am Urine RBC 0-1 /HPF 0-3 05/18/2016 9:44am 05/18/2016 10:09am Urine Squamous Epithelial Cells NONE SEEN 05/18/2016 9:44am 2016 10:09am Urine Bacteria NONE SEEN NEGATIVE 05/18/2016 9:44am 05/18/2016 10: 09am Urine Culture Indicated CULT NOT INDICATED 05/18/2016 9:44am 2016 10:09am White Blood Count 8.9 T/MM3 4.5-11.0 05/27/2016 10:35am 05/27/2016 11: 01am Red Blood Count 3.70 M/MM3 L 4.50-5.90 05/27/2016 10:35am 05/27/2016 11: 01am Hemoglobin 11.5 GM/DL L 13.5-17.5 05/27/2016 10:35am 05/27/2016 11:01am Hematocrit 35.9 % L 41-53 05/27/2016 10:35am 05/27/2016 11:01am Mean Corpuscular Volume 97.0 UM3 80-100 05/27/2016 10:35am 05/27/2016 11:01am Mean Corpuscular Hemoglobin 31.1 UUG 26-34 05/27/2016 10:35am 2016 11:01am Mean Corpuscular Hemoglobin Concent 32.0 GM/DL 31-37 05/27/2016 10:35am 05/27/2016 11:01am RDW Standard Deviation 46.0 FL 36.9-50.2 05/27/2016 10:35am 05/27/2016 11:01am Platelet Count 539 T/MM3 D H 130-400 05/27/2016 10:35am 05/27/2016 11: 01am Mean Platelet Volume 9.6 UM3 9.4-12.4 05/27/2016 10:35am 05/27/2016 11: 01am Neutrophils (%) (Auto) 65.6 % 33-66 05/27/2016 10:35am 05/27/2016 11: 01am Lymphocytes (%) (Auto) 19.9 % L 23-45 05/27/2016 10:35am 05/27/2016 11: 01am Monocytes (%) (Auto) 10.1 % H 0-9.0 05/27/2016 10:35am 05/27/2016 11: 01am Eosinophils (%) (Auto) 3.1 % 0-4 05/27/2016 10:35am 05/27/2016 11:01am Basophils (%) (Auto) 0.6 % 0-2 05/27/2016 10:35am 05/27/2016 11:01am Immature Granulocyte % (Auto) 0.7 % H 0.0-0.5 05/27/2016 10:35am 2016 11:01am Absolute Neutrophils (auto) 5.8 T/MM3 1.8-7.7 05/27/2016 10:35am 2016 11:01am Absolute Lymphocytes (auto) 1.8 T/MM3 1-4.8 05/27/2016 10:35am 2016 11:01am Absolute Monocytes (auto) 0.9 T/MM3 H 0-0.8 05/27/2016 10:35am 2016 11:01am Absolute Eosinophils (auto) 0.3 T/MM3 0-0.5 05/27/2016 10:35am 2016 11:01am Absolute Basophils (auto) 0.1 T/MM3 0-0.2 05/27/2016 10:35am 2016 11:01am Absolute Immature Granulocyte (auto 0.06 T/MM3 H 0.00-0.03 05/27/2016 10: 35am 05/27/2016 11:01am Prothromb Time International Ratio 1.19 H 0.76-1.04 05/27/2016 10:35am 05/27/2016 10:55am THERAPUTIC RANGE=2.00-3.00 FOR ANTI-THROMBOSIS THERAPUTIC RANGE=2.50-3.50 FOR IMPLANTED VALVE Icterus Index < 2 0-7 05/28/2016 4:1305/28/2016 5:12am Chemistry Specimen Hemolysis < 15 0-25 05/28/2016 4:05/28/2016 5 :12am 0-25: Specimen Exhibited No Hemolysis. Turbidity < 20 0-20 05/28/2016 4:1305/28/2016 5:12am Sodium Level 135 MEQ/L 134-144 05/28/2016 4:1305/28/2016 5:12am Potassium Level 5.1 MEQ/L D H 3.6-5 05/28/2016 4:05/28/2016 5:27am Chloride Level 103 MEQ/L 98-107 05/28/2016 4:05/28/2016 5:12am Carbon Dioxide Level 23 MEQ/L 22-30 05/28/2016 4:1305/28/2016 5: 12am Anion Gap 9 MEQ/L 5-15 05/28/2016 4:1305/28/2016 5:12am Blood Urea Nitrogen 13.0 MG/DL -05/28/2016 4:1305/28/2016 5: 12am Creatinine 0.8 MG/DL 0.8-1.5 05/28/2016 4:1305/28/2016 5:12am BUN/Creatinine Ratio 16 RATIO 6-05/28/2016 4:1305/28/2016 5:12am Glomerular Filtration Rate Calc 99 05/28/2016 4:1305/28/2016 5: 12am Glucose Level 184 MG/DL H 75-110 05/28/2016 4:1305/28/2016 5:12am Calculated Osmolality 265 MOSM/KG 261-280 05/28/2016 4:1305/28/2016 5:12am Calcium Level 9.1 MG/DL D 8.4-10.2 05/28/2016 4:1305/28/2016 5:27am Total Bilirubin 0.50 MG/DL 0.20-1.30 05/28/2016 4:1305/28/2016 5: 12am Alkaline Phosphatase 467 U/L H 38-126 05/28/2016 4:1305/28/2016 5: 12am Total Protein 7.0 G/DL 6.3-8.2 05/28/2016 4:05/28/2016 5:12am Albumin 3.5 G/DL 3.5-5.0 05/28/2016 4:05/28/2016 5:12am Globulin 3.5 G/DL 2.4-3.6 05/28/2016 4:1305/28/2016 5:12am Albumin/Globulin Ratio 1.0 RATIO L 1.1-2.2 05/28/2016 4:1305/28/2016 5:12am Aspartate Amino Transf (AST/SGOT) 50 U/L 17-59 05/28/2016 4:2016 5:12am Alanine Aminotransferase (ALT/SGPT) 58 U/L 21-72 05/28/2016 4:13 5:12am Lactate Dehydrogenase 422 U/L 313-618 05/27/2016 5:30pm 05/27/2016 5: 44pm Lipase 101 U/L 23-300 05/28/2016 4:1305/28/2016 5:12am Magnesium Level 1.9 MG/DL 1.6-2.3 05/27/2016 10:35am 05/27/2016 11: 04am Urine Color YELLOW YELLOW 05/27/2016 1:43pm 05/27/2016 2:02pm Urine Turbidity CLEAR CLEAR 05/27/2016 1:43pm 05/27/2016 2:02pm Urine Specific Ramsay 1.025 1.015-1.025 05/27/2016 1:43pm 2016 2:02pm Urine pH 6.0 5.0-8.0 05/27/2016 1:43pm 05/27/2016 2:02pm Urine Leukocyte Esterase NEGATIVE NEGATIVE 05/27/2016 1:43pm 2016 2:02pm Urine Nitrite NEGATIVE NEGATIVE 05/27/2016 1:43pm 05/27/2016 2:02pm Urine Protein NEGATIVE NEGATIVE 05/27/2016 1:43pm 05/27/2016 2:02pm Urine Glucose (UA) NEGATIVE NEGATIVE 05/27/2016 1:43pm 05/27/2016 2: 02pm Urine Ketones NEGATIVE NEGATIVE 05/27/2016 1:43pm 05/27/2016 2:02pm Urine Urobilinogen 0.2 EU/DL NORMAL 05/27/2016 1:43pm 05/27/2016 2: 02pm Urine Bilirubin NEGATIVE NEGATIVE 05/27/2016 1:43pm 05/27/2016 2: 02pm Urine Blood NEGATIVE NEGATIVE 05/27/2016 1:43pm 05/27/2016 2:02pm Urinalysis Comment MICROSCOPIC NOT IND. 05/27/2016 1:43pm 2016 2:02pm Serum Amylase 59 U/L 25-125 05/28/2016 4:13am 05/28/2016 6:05pm Amylase performed at [facility], [address] [place] [address] Broomcorn Sorter Pepper Benz DO Microbiology Results Procedure Source Organism/Result Collection Date/Time Result Date/Time Result Status Urine Culture Urine, Clean Catch-Midstream GRAM POSITIVE ORGANISM 2015 10:04pm 03/24/2016 7:45am Final WOUND CULTURE SUPERFICIAL-AER Skin CULTURE INITIATED - RESULTS PENDING 9:16pm 06/06/2016 9:36pm Preliminary Procedures Procedure Status Date Provider(s) Comprehen metabolic panel Completed 03/28/16 Assay of magnesium Completed 03/28/16 Bl smear w/diff wbc count Completed 03/28/16 Complete cbc automated Completed 03/28/16 Echo exam of abdomen Completed 05/13/16 Routine venipuncture Completed 05/18/16 Comprehen metabolic panel Completed 05/18/16 Urinalysis auto w/scope Completed 05/18/16 Assay of ammonia Completed 05/18/16 Assay of magnesium Completed 05/18/16 Complete cbc w/auto diff wbc Completed 05/18/16 Emergency dept visit Completed 05/18/16 DRUG TESTS, PRESUMPTIVE, BY INSTRUMENTED CHEMISTRY ANALYZERS Completed DRUG TESTS, PRESUMPTIVE, BY INSTRUMENTED CHEMISTRY ANALYZERS Completed DRUG TESTS, PRESUMPTIVE, BY INSTRUMENTED CHEMISTRY ANALYZERS Completed Us exam abdom complete Completed 05/26/16 Routine venipuncture Completed 05/27/16 Laparo cholecystectomy/graph Completed 05/27/16 SHAE BRENNAN MD, FACS, CWS Chest x-ray 2vw frontal&latl Completed 05/27/16 X-ray bile ducts/pancreas Completed 05/27/16 Comprehen metabolic panel Completed 05/27/16 Comprehen metabolic panel Completed 05/27/16 Urinalysis auto w/o scope Completed 05/27/16 Assay of amylase Completed 05/27/16 Assay of amylase Completed 05/27/16 Lactate (ld) (ldh) enzyme Completed 05/27/16 Assay of lipase Completed 05/27/16 Assay of lipase Completed 05/27/16 Assay of magnesium Completed 05/27/16 Complete cbc w/auto diff wbc Completed 05/27/16 Prothrombin time Completed 05/27/16 Hydrate iv infusion add-on Completed 05/27/16 Ther/proph/diag inj iv push Completed 05/27/16 [id number] ITEM OR SERVICE Completed 05/27/16 [id number] ITEM OR SERVICE Completed 05/27/16 [id number] ITEM OR SERVICE Completed 05/27/16 [id number] ITEM OR SERVICE Completed 05/27/16 [id number] ITEM OR SERVICE Completed 05/27/16 [id number] ITEM OR SERVICE Completed 05/27/16 [id number] ITEM OR SERVICE Completed 05/27/16 [id number] ITEM OR SERVICE Completed 05/27/16 [id number] ITEM OR SERVICE Completed 05/27/16 [id number] ITEM OR SERVICE Completed 05/27/16 [id number] ITEM OR SERVICE Completed 05/27/16 [id number] ITEM OR SERVICE Completed 05/27/16 [id number] ITEM OR SERVICE Completed 05/27/16 [id number] ITEM OR SERVICE Completed 05/27/16 [id number] ITEM OR SERVICE Completed 05/27/16 [id number] ITEM OR SERVICE Completed 01/20/17 [id number]"INJECTION, PANTOPRAZOLE SODIUM, PER VIAL" Completed 05/27/16"INJECTION, SUCCINYLCHOLINE CHLORIDE, UP TO 20 MG" Completed 05/27/16"INJECTION, DEXAMETHASONE SODIUM PHOSPHATE, 1MG" Completed 05/27/16"INJECTION, HYDROMORPHONE, UP TO 4 MG" Completed 05/27/16"INJECTION, HYDROMORPHONE, UP TO 4 MG" Completed 05/27/16"INJECTION, HYDROMORPHONE, UP TO 4 MG" Completed 05/27/16"INJECTION, MIDAZOLAM HYDROCHLORIDE, PER 1 MG" Completed 05/27/16"INJECTION, ONDANSETRON HYDROCHLORIDE, PER 1 MG" Completed 05/27/16"RINGERS LACTATE INFUSION, UP TO 1000 CC" Completed 05/27/16"LOW OSMOLAR CONTRAST MATERIAL, 300-399 MG/ML IODINE C Completed Encounters Encounter Location Arrival/Admit Date Discharge/Depart Date Attending Provider Departed Emergency Room [facility] 06/06/16 8:15pm 06/06/16 9: 39pm RONEL ANAYA MD Departed Surgical Day Care [facility] 05/27/16 10:01am 05/28/16 12:10pm ISABEL ORLANDO MD Registered [facility] 05/26/16 7:46am ISABEL ORLANDO MD Departed Emergency Room [facility] 05/18/16 6:58am 05/18/16 5: 15pm AFUA CAMPOS MD Registered [facility] 05/13/16 9:49am QUENTIN LANDAVERDE Registered [facility] 03/28/16 11:49am ISABEL ORLANDO MD Discharged Inpatient [facility] 03/22/16 12:32am 03/25/16 6:03pm FRANCOISE BARRON MD Recent Diagnosis
--- OUTSIDE RECORDS SUMMARY | 2016-09-01 22:08 | XMS REPORT | Continuity of Care Document ---
Author Author [facility] Organization [facility] Address Unknown Phone Unavailable Support Name Relationship Address Phone ISABEL ORLANDO MD Caregiver [address] [place], [place] [id number] VIRAL SALEEM DO Caregiver [facility] [address] [place], [place] [id number] RAMESH SANFORD Next Of Kin [address] [facility] [address] [place] [address] Insurance Providers Payer Name Policy Number Subscriber Name Relationship Medicare [id number] Tim Sandoval 18 Self Medicaid [id number] Tim Sandoval 18 Self Problems Medical Problems Problem Onset Date Status Back pain Unknown Active Back pain Unknown Active Strain of left knee Unknown Active Strain of left knee Unknown Active Exacerbation of chronic back pain Unknown Active Exacerbation of chronic back pain Unknown Active Medications Medication Dose Route Sig [...] TWICE A DAY 60 Qty 03/23/14 Active Cyclobenzaprine HCl 1 Tab PO THREE TIMES A DAY 10 Days 04/18/14 Active Hydrocodone/Acetaminophen 1 Tab PO Every 6 Hours 15 Qty 04/18/14 Active Social History Social History Problem Response Recorded Date/Time Hx Substance Use No 04/18/2014 3:29pm Hx Alcohol Use Y HX OF, LAST DRINK FEW DAYS AGO 04/18/2014 3:29pm Has the pt used tobacco in the last 12 months Yes 03/24/2014 1:29pm Tobacco Usage smoke 09/09/2013 5:56pm Query Response Start Date Stop Date Smoking [...] APPOINTMENT. Condition at time of discharge: Good QUESTIONS PLEASE CALL OFFICE AT [phone]. 7-[address] Goldstein. THE FOLLOW UP APPOINTMENT IS ON Monday04-25-14 AT 10:45 AM. IF NEED TO RESCHEDULE PLEASE CALL THE OFFICE AT [phone]. Patient Instructions: n/a Wound/Incision Care: n/a Durable Medical Equipment: n/a Notify Physician If: worsening abd pain, temp > 100, N/V General Information: n/a Condition at time of discharge: Fair Condition at time of discharge: Good rate >100, confusion, or persistent nausea/vomitting. 2.Severe pain, swelling, redness, or warmth in either of your legs. 3.During office hours, call [phone] 4. After hours, please call [facility] at [phone], and have the casting operator helper page your Surgeon IN THE EVENT OF AN EMERGENCY, seek medical care at the nearest Emergency Room Condition at time of discharge: Good Plan of Care Discharge Date 03/23/14 7:25pm Instructions/Education Provided DI for Alcohol Abuse and Alcoholism DI for Hypokalemia Prescriptions See Medications Section Functional Status Query Response Date Recorded Physical Hygiene Self April 18, 2014 3:29pm Disabilities None April 18, 2014 3:29pm Devices Used Glasses April 18, 2014 3:29pm Dressing Self April 18, 2014 3:29pm Ambulation Self April 18, 2014 3:29pm Diet Self April 18, 2014 3:29pm Mental Status Alert Oriented April 18, 2014 3:29pm Disabilities None April 18, 2014 3:29pm Devices Used Glasses April 18, 2014 3:29pm Physical Hygiene Self April 18, 2014 3:29pm Dressing Self April 18, 2014 3:29pm Ambulation Self April 18, 2014 3:29pm Diet Self April 18, 2014 3:29pm Allergies, Adverse Reactions, Alerts Allergen Type Severity Reaction Status Last Updated No Known Drug Allergies Allergy Unknown Active 03/21/14 Immunizations Name Given Type Hx Influenza Vaccination No Historical Hx Pneumococcal Vaccination No Historical Hx Tetanus, Diptheria, Pertussis Y 04-27-09 Historical Hx Influenza Vaccination No Historical Hx Tetanus, Diptheria, Pertussis Y 04-27-09 Historical Vital Signs Acute Vital Signs Vital Response Date/Time Temperature (Fahrenheit) 96.2 deg F (96.8 - 99.1) Temperature (Calculated Celsius) 35.79919 degrees C (36.0 - 37.3) Pulse Rate (adult) 81 bpm (60 - 100) Respiratory Rate 16 breaths/min (10 - 20) O2 Sat by Pulse Oximetry 95 % (90 - 100) Blood Pressure 133/84 mm Hg Height 5 ft 9 in Weight 184 lb Body Mass Index 27.0 kg/m^2 Results Test Source Date Result Interp. [...] Has specimen been collected/obtained? Y Urine Specific [place] February 05, 2010 1:15pm 1.010 L - [...] 25, 2014 5:21pm LAB TEST FORM REQUEST [id number] - EKG February 25, 2009 6:43pm Complete [...] NG/ML - Name: TIM SANDOVAL Unit #: [id number] : 1955 Sex: M Loc / Svc: SRG DOS: Signed Report #: [id number] DIAGNOSTIC IMAGING REPORT TYPE OF EXAM: MRI [...] Date Provider(s) EMERGENCY DEPT VISIT completed 02/27/14 ROUTINE VENIPUNCTURE completed 03/21/14 COMPREHEN METABOLIC PANEL completed 03/21/14 ASSAY OF ETHANOL completed 03/21/14 ASSAY OF MAGNESIUM completed 03/21/14 ASSAY OF TROPONIN QUANT completed 03/21/14 BL SMEAR W/DIFF WBC COUNT completed 03/21/14 COMPLETE CBC AUTOMATED completed 03/21/14 ROUTINE VENIPUNCTURE completed 03/25/14 METABOLIC PANEL TOTAL CA completed 03/25/14 ASSAY OF MAGNESIUM completed 03/25/14 Encounters Encounter Location Date/Time Departed Emergency Room [facility] 04/18/14 2:42pm Discharged Recurring [facility] 03/25/14 12:00pm Registered Clinic [facility] 03/25/14 10:40am Discharged Inpatient [facility] 03/22/14 11:50am Registered Clinic [facility] 03/21/14 12:59pm Departed Emergency Room [facility] 02/27/14 12:15pm Recent Diagnosis
--- OUTSIDE RECORDS SUMMARY | 2016-09-01 22:08 | XMS REPORT | Referral Summary ---
Author Author [facility] Organization [facility] Address Unknown Phone Unavailable Care Team Providers Care Science Tutor Name Role Phone NiecybridgetteTuyet Primary Care Physician [phone] Encounter VC Date(s): 06/07/16 - 06/07/16 [facility] [address] [place] [address] RAD[place] [phone] [place] Discharge Diagnosis: Incisional infection Discharge Disposition: 01-Home or Self Care Attending Physician: Cullen Abebe MD Admitting Physician: Cullen Abebe MD Vital Signs Most recent to 1 oldest [Reference Range]: Temperature Tympanic 37.1 degC [36.6-38.1 degC] (06/07/16 1:13 PM) Problem List Condition Effective Dates Status Health Status Informant Alcohol Active patient abuse(Confirmed) Depression(Confirmed Active patient ) Hyperlipidemia(Confi Active patient rmed) Hypertension(Confirm Active patient ed) Tobacco Active patient user(Confirmed) Hepatitis Active patient C(Confirmed) Allergies, Adverse Reactions, Alerts No Known Medication Allergies Medications Bactrim DS 800 mg-160 mg oral tablet 1 tabs, Oral, BID, X 14 days, # 28 tabs, 0 Refill(s), Pharmacy: [facility] #[id number] Start Date: 06/07/16 Stop Date: 06/21/16 Status: Ordered Centrum Silver oral tablet 1 tabs, Oral, [...] 0 Refill(s) Start Date: 05/31/16 Status: Ordered tamsulosin 0.4 mg oral capsule [...] No data available for this section Procedures No data available for this section Social History Social History Type Response Smoking Status Current every day smoker; Type: Cigarettes; Tobacco use per day: 1 Pack; Number of years: 40 Assessment and Plan Extracted from: Title: Office Visit Note Author: Cullen Abebe MD Date: 06/07/16 Assessment/Plan 1.Incisional infection Ordered: Postoperative Est [id number] Plan:Drainage of smallperiumbilical seroma. Continuation of antibiotics. Packsmall surgical wound on twice a day basis. Patient's roopa were discontinued. Incisions within the epigastric region and right lateral abdominal wall and right midabdomen of all healed without difficulty. Small seroma was notedbeneath umbilicus. Hemostat introduced into incisions of the spread. Perhaps 15-20 mL of serosanguineous fluid was evacuated. Surgical wound was then packed with Nu Gauze moistened normal saline. Patient's mother whom is a retired nurse wasgiven supplies and instructions on how to pack wound on twice a day basis. Additionally E prescription for Bactrim given. Patient also requestedadditional pain medications. Prescription also given fora narcotics. Patient toreturn to office in2 weeksor sooner prompt arise.
--- OUTSIDE RECORDS SUMMARY | 2016-09-01 22:08 | XMS REPORT | Referral Summary ---
Author Author [facility] Organization [facility] Address Unknown Phone Unavailable Care Team Providers Care Senior Validation Engineer Name Role Phone Niecybridgette Tuyet Primary Care Physician [phone] Encounter VC Date(s): 06/15/16 - 06/15/16 [facility] [address] [place] [address] RAD[place] Dean [phone]- [place] Discharge Disposition: 01-Home or Self Care Attending Physician: Cullen Abebe MD Admitting Physician: Cullen Abebe MD Vital Signs No data available for this section Problem List Condition Effective Dates Status Health Status Informant Alcohol Active patient abuse(Confirmed) Depression(Confirmed Active patient ) Hyperlipidemia(Confi Active patient rmed) Hypertension(Confirm Active patient ed) Tobacco Active patient user(Confirmed) Hepatitis Active patient C(Confirmed) Allergies, Adverse Reactions, Alerts No Known Medication Allergies Medications Bactrim DS 800 mg-160 mg oral tablet 1 tabs, Oral, BID, X 14 days, # 28 tabs, 0 Refill(s), Pharmacy: [facility] #[id number] Start Date: 06/07/16 Stop Date: 06/21/16 Status: [...] 7 DAYS, # 14 tabs , eRx: [facility] #[id number], TAKE ONE TABLET BY MOUTH EVERY 12 [...] 40 Assessment and Plan Extracted from: Title: Wound Evaluation Author: Cindy Osorio RN Date: 06/15/16 Mother had called in yesterday with concerns that NuGauze packing was not present in wound and she was afraid it was deep in the wound bed. Patient presented and denies pain to site. Dressing with serous drainage on it the size of a quarter. When questioned patient reports that he removed the gauze packing strip when he showered. His mother was unaware of this and patient did not mention this when he was questioned by his mother. Wound flushed and cleaned with saline. Patient tolerated well. No evidence of any retained gauze packing in wound. No redness around wound, no swelling. Patient reports that the site is not painful. Cotton tipped applicator was inserted to wound bed, 2.4cm. Wound repacked and dressing supplies provided. Patient is to keep his appt. next week. Instructed to call office with any questions or concerns.
--- OUTSIDE RECORDS SUMMARY | 2016-09-01 22:08 | XMS REPORT | Referral Summary ---
Author Author [facility] Organization [facility] Address Unknown Phone Unavailable Care Team Providers Care Diabetes Solutions Specialist Name Role Phone NiecybridgetteTuyet Primary Care Physician [phone] Encounter Date(s): 05/31/16 - 05/31/16 [facility] [address] [place] [address] RAD[place] Dean [address] [place] Discharge Diagnosis: S/p laparoscopic cholecystectomy Discharge Diagnosis: Gallstone pancreatitis Discharge Disposition: 01-Home or Self Care Attending Physician: Cullen Abebe MD Admitting Physician: Cullen Abebe MD Vital Signs Most recent to 1 oldest [Reference Range]: Temperature Tympanic 37.1 degC [36.6-38.1 degC] (05/31/16 1:08 PM) Problem List Condition Effective Dates Status Health Status Informant Alcohol Active patient abuse(Confirmed) Depression(Confirmed Active patient ) Hyperlipidemia(Confi Active patient rmed) Hypertension(Confirm Active patient ed) Tobacco Active patient user(Confirmed) Hepatitis Active patient C(Confirmed) Allergies, Adverse Reactions, Alerts No Known Medication Allergies Medications Bactrim DS 800 mg-160 mg oral tablet 1 tabs, Oral, q12hr, X 7 days, # 14 tabs, 0 Refill(s), Pharmacy: [facility] #[id number] Start Date: 05/31/16 Stop Date: 06/07/16 Status: Ordered Centrum Silver oral tablet 1 [...] oral capsule 1,200 mg 1 caps, Oral, Mon//, 0 Refill(s) Start Date: 05/31/16 Status: Ordered folic acid 1 mg oral tablet 1 mg 1 tabs, Oral, Daily, # 30 tabs, 0 Refill(s) Start Date: 09/26/14 Status: Ordered gabapentin 300 mg oral capsule 300 mg 1 caps, Oral, Daily, 0 Refill(s) Start Date: 05/31/16 Status: Ordered gemfibrozil See Instructions, 600 mg Oral 2 tablets daily, 0 Refill(s) Start Date: 05/31/16 Status: Ordered magnesium oxide 500 mg oral [...] Visit Note Author: Cullen Abebe MD Date: 05/31/16 Assessment/Plan 1.S/p laparoscopic cholecystectomy Ordered: Postoperative Est 89526 2.Gallstone pancreatitis Ordered: Postoperative Est 72821 Plan: Initiate antibiotic therapy for localized cellulitis/wound infection. I informed the patient that it does appear he has developed a localized wound infection/cellulitisaround his umbilical incision. E prescription was given for Bactrim DS 1 by mouth twice a day 7 days. The edges of the erythemasurrounding the periumbilical regionwas marked out percutaneously with ink pen. Patient and mother were advised to monitor this and if the area of redness began to extend beyond the"inkMark"they were to contact the office. If on the other hand the area of redness began to dissipatehe was instructed return to the office at a one week interval for recheck. I informed the patient that I would expect for him to have some incisional tenderness especially whengetting up out of bed or a chair". Patient was informed that if he began to experience increasing abdominal pain that he shouldcontact the office. Refill forpain pills for some back pain relief was given to patient. Patientto return to clinic at one week interval as above.
--- OUTSIDE RECORDS SUMMARY | 2016-09-01 22:08 | XMS REPORT | Continuity of Care Document ---
Author Author [facility] Organization [facility] Address Unknown Phone Unavailable Allergies Active Description Code Type Severity Reaction Onset Reported/Identified Relationship to Patient Clinical Status Yes No Known Medication Allergies NKMA N/A N/A 12/22/2014 Yes No Known Medication Allergies NKMA N/A N/A 12/22/2014 Medications Medication Packaging Start Date Stop Date Route Dosage Sig metoprolol(metoprolol tartrate 25 mg oral tablet) 2 tabs 09/26/2014 05/31/2016 Oral 50 mg 50 mg=2 tabs, Oral, BID, 60 DAYS OVERDUE FOR REFILL, 0 Refill(s) gemfibrozil(gemfibrozil) 09/26/2014 05/31/2016 Oral 600 mg 600 mg, Oral, BID, OVERDUE FOR REFILL, 0 Refill(s) magnesium sulfate(magnesium sulfate) 09/26/2014 05/31/2016 Oral 400MG g, Oral, BID, OVERDUE FOR REFILL, 0 Refill(s) hydrochlorothiazide(hydrochlorothiazide) 09/26/20142016 Oral 25 mg 25 mg, Oral, Daily, 0 Refill(s) venlafaxine(Effexor XR 75 mg oral capsule, extended release ) 1 caps 09/26/2014 05/31/2016 Oral 75 mg 75 mg=1 caps, Oral, Daily, OVERDUE FOR REFILL, 30 caps, 0 Refill(s) omeprazole(omeprazole 20 mg oral delayed release tablet) 1 tabs 09/26/2014 05/31/2016 Oral 20 mg 20 mg=1 tabs, Oral, Daily, OVERDUE FOR REFILL, 0 Refill(s) folic acid(folic acid 1 mg oral tablet) 1 tabs 09/26/2014 Oral 1 mg 1 mg=1 tabs, Oral, Daily, 30 tabs, 0 Refill(s) cefuroxime(Ceftin 500 mg oral tablet) 1 tabs 09/26/20142014 Oral 500 mg 500 mg=1 tabs, Oral, BID, for 7 days, 14 tabs, 0 Refill(s) Sodium Chloride 0.9%(Sodium Chloride 0.9% Bolus) 1,000 mL 12/22/2014 12/25/2014 Bolus IV 1,000 mL, Bolus IV, Once LORazepam(Ativan) 1 mL 12/22/2014 12/25/2014 IV Push 2 mg 2 mg= 1 mL, IV Push, Once chlordiazePOXIDE(chlordiazePOXIDE 25 mg oral capsule) 1 caps 12/22/2014 12/29/2014 Oral 25 mg 25 mg=1 caps, Oral, QID, for 7 days, PRN: as needed for symptoms of alcohol withdrawal, 28 caps, 0 Refill(s) naltrexone(naltrexone 50 mg oral tablet) 1 tabs 12/22/2014 Oral 50 mg 50 mg=1 tabs, Oral, Daily, for 30 days, 30 tabs, 0 Refill(s) potassium chloride(potassium chloride 20 mEq/15 mL oral liquid) 15 mL 201412/22/2014 Oral 20 mEq 20 mEq=15 mL, Oral, Once oxyCODONE(oxyCODONE 7.5 mg oral tablet) 1 tabs 05/31/201607/05 Oral 7.5 mg 7.5 mg=1 tabs, Oral, q6hr, PRN: Pain Severe (7-10), 30 tabs, 0 Refill(s) sulfamethoxazole-trimethoprim(Bactrim DS 800 mg-160 mg oral tablet) 1 tabs 06/07/2016 Oral 1 tabs, Oral, q12hr, for 7 days, 14 tabs, 0 Refill(s) cephalexin(Keflex 500 mg oral capsule) 1 caps 06/07/20162016 Oral 500 mg 500 mg=1 caps, Oral, TID, for 10 days, Patient has not started yet, 0 Refill(s) oxyCODONE(oxyCODONE 5 mg oral capsule) 1 caps 06/07/2016 Oral 5 mg 5 mg=1 caps, Oral, BID, Before dressing changes, 30 caps, 0 Refill(s) sulfamethoxazole-trimethoprim(Bactrim DS 800 mg-160 mg oral tablet) 1 tabs 06/21/2016 Oral 1 tabs, Oral, BID, for 14 days, 28 tabs, 0 Refill(s) sulfamethoxazole-trimethoprim(sulfamethoxazole- trimethoprim 800 mg-160 mg oral tablet) 06/09/2016 See Instructions, TAKE ONE TABLET BY MOUTH EVERY 12 HOURS FOR 7 DAYS, 14 tabs Problems Date Dx Coded Attending Type Code Diagnosis Diagnosed By 12/23/2014 Anibal Dickinson Final 291.81 ALCOHOL WITHDRAWAL 12/23/2014 Anibal Dickinson Final 303.90 OTHER AND UNSPECIFIED ALCOHOL DEPENDENCE, UNSPECIFIED DRINKING BEHAVIOR 12/23/2014 Anibal Dickinson Reason 305.00 ALCOHOL ABUSE, UNSPECIFIED DRINKING BEHAVIOR Procedures Code Description Performed By Performed On 76.76 OPEN REDUCT MANDIBLE FX Tonny WILLIS MD , Scooter Harris 11/06/2012 Results Test Result Range CBC - 11/06/12 14:37 MEAN CELL HGB 30.4 pg 27.0-33.0 MEAN CELL HGB CONCENTRATION 33.5 g/dL 32.0-37.0 MEAN CELL VOLUME 90.7 fl 80.0-100.0 RED BLOOD CELL 5.14 m/cumm 4.00-6.00 RED CELL DISTRIBUTION WIDTH 14.9 % 11.0- 15.6 WHITE BLOOD CELL 6.8 k/cumm 5.0-10.0 HEMOGLOBIN 15.6 gm/dL 14.0-18.0 HEMATOCRIT 46.6 % 40.0-54.0 PLATELET COUNT 243 k/cumm 150-400 PROTHROMBIN TIME WITH INR - 11/06/12 14:37 INTERNATIONAL NORMAL RATIO 1.0 0.9-1.1 PROTHROMBIN TIME 10.6 sec 9.3-12.2 METABOLIC PANEL, BASIC - 11/06/12 14:37 POTASSIUM 3.3 mmol/L 3.5-5.3 EST GFR (MDRD) > 60 mL/min > 59 ANION GAP 10 mmol/L 5-15 EST CrCl (CG) > 60 mL/min > 59 GLUCOSE 115 mg/dL 70-99 CALCIUM 8.3 mg/dL 8.5-10.1 BLOOD UREA NITROGEN 13 mg/dL 7-20 CREATININE 1.0 mg/dL 0.8-1.3 SODIUM 140 mmol/L 135-148 CHLORIDE 103 mmol/L 98-110 CARBON DIOXIDE 27 mmol/L 21-32 METABOLIC PANEL, BASIC - 11/07/12 05:10 POTASSIUM 3.9 mmol/L 3.5-5.3 EST GFR (MDRD) 60 mL/min > 59 ANION GAP 11 mmol/L 5-15 EST CrCl (CG) > 60 mL/min > 59 GLUCOSE 190 mg/dL 70-99 CALCIUM 8.2 mg/dL 8.5-10.1 BLOOD UREA NITROGEN 13 mg/dL 7-20 CREATININE 1.3 mg/dL 0.8-1.3 SODIUM 138 mmol/L 135-148 CHLORIDE 102 mmol/L 98-110 CARBON DIOXIDE 25 mmol/L 21-32 MRSA SURVEILLANCE SCREEN - 11/07/12 12:10 Uncategorized Encounters ACCT No. Visit Date/Time Discharge Status Pt. Type Provider Facility Loc./Unit Complaint [id number] 11/06/2012 13:43:00 2012 15:56:00 DIS Outpatient Tonny WILLIS MD, [facility] YUR[place]IA
--- OUTSIDE RECORDS SUMMARY | 2016-09-01 22:09 | XMS REPORT | Referral Summary ---
Author Author [facility] Organization [facility] Address Unknown Phone Unavailable Care Team Providers Care Cte Teacher Name Role Phone Eulalio Daiz Primary Care Physician [phone] Encounter VC Date(s): 06/28/16 - 06/28/16 [facility] [address] [place] [address] RADHA Dean [id number] Discharge Diagnosis: Post-operative wound abscess Discharge Disposition: 01-Home or Self Care Attending Physician: Archana Fink APRN Admitting Physician: Archana Fink APRN Referring Physician: Willy Diaz MD Vital Signs Most recent to 1 oldest [Reference Range]: Temperature Oral 36.6 degC [35.8-37.3 degC] (06/28/16 10:22 AM) Problem List Condition Effective Dates Status [...] 7 DAYS, # 14 tabs , eRx: [facility] #[id number], TAKE ONE TABLET BY MOUTH EVERY 12 [...] Title: Office Visit Note Author: Archana Fink APRN Date: 06/28/16 Assessment/Plan 1.Post-operative wound abscess This area appears to have pretty much healed in. There is no depth to the wound there is only a very small area that still needs to epithelialize. All we need is a little antibiotic ointmenton a daily or every other day basis. Adhesive remover pads are given so he canget some of the adhesive glue offbefore his next shower. Return to our office on an as-needed basis and continue with general medical care through your primary care physician. Ordered: Postoperative Est [id number]
--- NOTE | 2016-09-01 22:10 | NUR ---
PROVIDER LISSY LANCASTER IN ROOM TO SEE PT
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
--- NOTE | 2016-09-01 22:59 | NUR ---
TO CT TO CT VIA CART, ACCOMPANIED WITH MANAGER ENGLISH FOR C-SPINE STABILIZATION.
--- OUTSIDE RECORDS SUMMARY | 2016-09-01 23:08 | XMS REPORT | Continuity of Care Document ---
Author Author [facility] Organization [facility] Address Unknown Phone Unavailable Support Name Relationship Address Phone ISABEL ORLANDO MD Caregiver [address] [place], [place] [phone] VIRAL SALEEM DO Caregiver [facility] [address] [place], [place] [id number] RAMESH SANFORD Next [facility] [address] [facility] [address] [place] [address] Insurance Providers Payer Name Policy Number Subscriber Name Relationship Medicare [id number] Tim Sandoval 18 Self Medicaid [id number] Tim Sandoval 18 Self Problems Medical Problems [...] discharge: Good QUESTIONS PLEASE CALL OFFICE AT [phone]. 7-[address] Goldstein. THE FOLLOW UP APPOINTMENT IS ON Monday04-25-14 AT 10:45 AM. IF NEED TO RESCHEDULE PLEASE CALL THE OFFICE AT [phone]. Patient Instructions: n/a Wound/Incision Care: n/a Durable Medical Equipment: n/a Notify Physician If: worsening abd pain, temp > 100, N/V General Information: n/a Condition at time of discharge: Fair Condition at time of discharge: Good rate >100, confusion, or persistent nausea/vomitting. 2.Severe pain, swelling, redness, or warmth in either of your legs. 3.During office hours, call [phone] 4. After hours, please call [facility] at [phone], and have the loader operator supervisor page your Surgeon IN THE EVENT OF [...] F (96.8 - 99.1) Temperature (Calculated Celsius) 35.34578 degrees C (36.0 - 37.3) Pulse Rate [...] Has specimen been collected/obtained? Y Urine Specific [place] February 05, 2010 1:15pm 1.010 L - [...] 25, 2014 5:21pm LAB TEST FORM REQUEST [id number] - EKG February 25, 2009 6:43pm Complete [...] NG/ML - Name: TIM SANDOVAL Unit #: [id number] : 1955 Sex: M Loc / Svc: SRG DOS: Signed Report #: [id number] DIAGNOSTIC IMAGING REPORT TYPE OF EXAM: MRI [...] Encounters Encounter Location Date/Time Departed Emergency Room [facility] 04/18/14 2:42pm Discharged Recurring [facility] 03/25/14 12:00pm Registered Clinic [facility] 03/25/14 10:40am Discharged Inpatient [facility] 03/22/14 11:50am Registered Clinic [facility] 03/21/14 12:59pm Departed Emergency Room [facility] 02/27/14 12:15pm Recent Diagnosis
--- OUTSIDE RECORDS SUMMARY | 2016-09-01 23:08 | XMS REPORT | Continuity of Care Document ---
Author Author [facility] Organization [facility] Address Unknown Phone Unavailable Support Name Relationship Address Phone ISABEL ORLANDO MD Caregiver [address] [place], [place] [phone] RAMESH SANFORD Next Of Kin [address] [place], [place] [phone] Insurance Providers Payer Name Policy Number Subscriber Name Relationship Medicare [id number] Tim Sandoval 18 Self Medicaid [id number] Tim Sandoval 18 Self Advance Directives Directive [...] discharge: Good Dr. Reeder office phone number: [phone]. Patient Instructions: n/a Wound/Incision Care: n/a Durable [...] F (96.8 - 99.1) Temperature (Calculated Celsius) 37.59531 degrees C (36.0 - 37.3) Temperature Source [...] Has specimen been collected/obtained? Y Urine Specific [place] February 05, 2010 1:15pm 1.010 L - [...] 25, 2014 5:21pm LAB TEST FORM REQUEST [id number] - EKG February 25, 2009 6:43pm Complete [...] NG/ML - Name: TIM SANDOVAL Unit #: [id number] : 1955 Sex: M Loc / Svc: SRG DOS: Signed Report #: [id number] DIAGNOSTIC IMAGING REPORT TYPE OF EXAM: MRI [...] 02/27/14 Encounters Encounter Location Date/Time Discharged Recurring [facility] 03/25/14 12:00pm Registered Clinic [facility] 03/25/14 10:40am Discharged Inpatient [facility] 03/22/14 11:50am Registered [facility] 03/21/14 12:59pm Departed Emergency Room [facility] 02/27/14 12:15pm
--- OUTSIDE RECORDS SUMMARY | 2016-09-01 23:08 | XMS REPORT | Continuity of Care Document ---
Author Author [facility] Organization [facility] Address Unknown Phone Unavailable Care Team Providers Care Skid Adzer Name Role Phone ISABEL ORLANDO MD Primary Care Physician [phone] Insurance Providers Payer Name Policy Number Subscriber Name Relationship Medicare [id number] Tim Sandoval 18 Self Medicaid [id number] Tim Sandoval 18 Self Advance Directives Directive [...] Follow Up Appointments: FOLLOW UP WITH DR. ORLADNO EARLY THIS WEEK, CALL TO MAKE APPOINTMENT. [...] F (96.8 - 99.1) Temperature (Calculated Celsius) 36.92812 degrees C (36.0 - 37.3) Temperature Source [...] Has specimen been collected/obtained? Y Urine Specific [place] February 05, 2010 1:15pm 1.010 L - [...] 2014 4:31am 5.2 T/MM3 N 4.5-11.0 Name: TIM SANDOVAL Unit #: [id number] : 1955 Sex: M Loc / Svc: [facility] [place] DOS: Signed Report #: [id number] DIAGNOSTIC IMAGING REPORT TYPE OF EXAM: MRI [...] procedures. Encounters Encounter Location Date/Time Discharged Inpatient [facility] 03/22/14 11:50am Registered Clinic [facility] 03/21/14 12:59pm Departed Emergency Room [facility] 02/27/14 12:15pm
--- OUTSIDE RECORDS SUMMARY | 2016-09-01 23:09 | XMS REPORT | Continuity of Care Document ---
Author Author [facility] Organization [facility] Address Unknown Phone Unavailable Allergies Active Description [...] Status Pt. Type Provider Facility Loc./Unit Complaint [id number] 11/06/2012 13:43:00 2012 15:56:00 DIS Outpatient Tonny WILLIS MD, [facility] [place]
--- NOTE | 2016-09-01 23:10 | NUR ---
RETURN FROM XRAY
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
--- NOTE | 2016-09-01 23:45 | NUR ---
STATUS PT IS UP TO BATHROOM
[2016-09-02] VITALS: BP 123/69; PULSE 100; RESP 18; TEMP 98.7; O2SAT 96
--- NOTE | 2016-09-02 | NUR ---
DEPART PT IS GIVEN DISMISSAL INSTRUCTIONS. PT REQUESTING HIS SURGEON GETS A COPY OF HIS CT NECK REPORT. HIM RELEASE OF INFORMATION FORM IS FILLED OUT FOR HIM TO SEND INFO. PT LEAVES AMBULATORY TO ED EXIT WHERE HIS RIDE IS WAITING TO PICK HIM UP.
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
== END 2016-09-02 | disposition home or self-care (01) ==
LOC: ED 22:05
DX: S00.33XA Contusion of nose, initial encounter (principal); M54.2 Cervicalgia; F10.129 Alcohol abuse with intoxication, unspecified; Y90.9 Presence of alcohol in blood, level not specified; Y04.8XXA Assault by other bodily force, initial encounter; Y93.89 Activity, other specified; Y92.009 Unspecified place in unspecified non-institutional (private) residence as the place of occurrence of the external cause; Y99.8 Other external cause status

== ENCOUNTER → 2016-09-05 | Outpatient (CLI) | payer MEDICARE, MEDICAID ==
--- NOTE | 2016-09-05 16:33 | DI ---
EXAM: CERVICAL SPINE 3 VIEWS OR LESS DATE: 09/05/2016 12:00 AM ENCOUNTER: Subsequent INDICATION: ITS.REASON: STENOSIS,SPONDYLOSIS COMPARISON: Cervical spine CT 09/01/2016 TECHNIQUE: Three views of the cervical spine were obtained. FINDINGS: The spine is visualized to the level of the cervicothoracic junction on the lateral radiograph. There is straightening of the normal cervical lordosis. Postoperative changes of anterior cervical discectomy and fusion at C5-C6 again noted. Unchanged anterolisthesis of C2-C3 secondary to hypertrophic facet arthropathy. Postoperative changes of the mandible bilaterally. Bony mineralization is normal. The odontoid is intact. The atlantodens interval is maintained. The vertebral bodies are otherwise normal in height and alignment. No cervical ribs. Multilevel degenerative disc disease and facet arthropathy Persistent likely postoperative prevertebral soft tissue swelling anterior to C5-C6. The visualized lung apices are clear. IMPRESSION: Multilevel degenerative spondylosis status post anterior cervical discectomy and fusion at C5-C6 with likely associated persistent prevertebral soft tissue swelling at this level. Anterolisthesis of C2-C3 again noted secondary to hypertrophic facet arthropathy. .
== END ==
LOC: IMA 15:40
PROVIDERS: ATTEND Neurological Surgery
DX: M47.892 Other spondylosis, cervical region (principal)